=== PATIENT | female | born 1945 | race Caucasian/White ===

== ENCOUNTER → 2021-08-22 | Outpatient (CLI) | payer MEDICARE, BC ==
--- NOTE | 2021-08-22 13:45 | MR ---
EXAMINATION TYPE: MR iac wo/w con DATE OF EXAM: 08/22/2021 COMPARISON: NONE HISTORY: Right ear hearing loss TECHNIQUE: Multiplanar, multisequence images of the brain and brainstem is performed without and with IV contras t, utilizing 7.5 mL intravenous Gadavist . Exam is performed under acoustic nerve disorder protocol. FINDINGS: Diffusion weighted images demonstrate no evidence of a recent infarct or other diffusion ab normality. The ventricular system and cisternal spaces are normal in size and appearance. The brain volume is age appropriate. Some scattered foci of T2 hyperintensity are seen throughout the white mat ter bilaterally. Approximately 20 scattered lesions are seen. Lesions are nonspecific in appearance a nd distribution. Midline structures demonstrate normal morphology. The craniocervical junction appears within normal limits. Normal vascular flow voids are present. Globes are intact bilaterally. Visualized paranasal s inuses are clear. No suspicious fluid signal in the bilateral mastoid air cells. Vestibulocochlear complexes are symmet ethan and felt within normal limits. There is no suspicious enhancing cerebellopontine angle mass ident ified bilaterally. IMPRESSION: [id number] nonspecific white matter changes favored product of chronic small vessel ischemic change in patient of this age. . No suspicious findings in the IACs to account for patient' s symptoms of right-sided hearing loss.
== END | disposition home or self-care (01) ==
LOC: RADMRIMAIN 12:14
PROVIDERS: ATTEND Otolaryngology
DX: I67.82 Cerebral ischemia (principal)
CPT/HCPCS: 70553; A9585